=== PATIENT | female | born 1975 | race Caucasian/White ===

== ENCOUNTER 2017-10-19 09:28 | Emergency (ER) | payer BC ==
[~2017-10-19 09:28] MED LIST: ENOX80DI8 SQ; ESC10 PO; FERR27TA3 PO; LEVO1TBD11 PO; OFF COUMADIN; PER PO
--- NOTE | 2017-10-19 09:30 | ER Report ---
History and Physical Time Seen By MD: 09:29 HPI/ROS CHIEF COMPLAINT: Steer stepped on foot HISTORY OF PRESENT ILLNESS: Patient states that her right foot was stepped on by his Steer. She is having pain to the distal aspect of the 2nd through 4th metatarsal area. Patient was wearing a canthus style sneaker when the injury occurred. Patient reports painful weightbearing. She denies any other injuries. Allergies: Coded Allergies: No Known Drug Allergies (Verified , 09/09/10) Home Meds Active Scripts Hydrocodone Bit/Acetaminophen (HYDROCODON-ACETAMINOPHEN 5-325) 1 Each Tablet, 1- 2 EACH PO Q4-6H for PAIN, #20 TAB 0 Refills Prov:GLENNA RAMÍREZ MD 10/19/17 Reported Medications [Metoprolol] No Conflict Check 10/19/17 Warfarin Sodium (COUMADIN) 7.5 Mg Tablet, 7.5 MG PO QDAY 10/19/17 Escitalopram Oxalate (Lexapro) 10 Mg Tab, 10 MG PO QDAY, 0 Refills 01/21/09 Discontinued Reported Medications Ferrous Sulfate (Iron) 1 Tab Tablet, 1 TAB PO QAM, 0 Refills 01/21/09 Enoxaparin Sodium (Lovenox) 80 Mg/0.8 Ml Disp.syrin, 80 MG SQ QAM, 0 Refills 01/21/09 [Off Coumadin] No Conflict Check, 0 Refills 01/21/09 Past Medical/Surgical History History of aortic stenosis with valve repair currently on Coumadin. Patient also history of hysterectomy status post menorrhagia. Constitutional Vital Sign - Last 24 Hours 10/19/17 10/19/17 09:32 10:31 Temp 98.1 Pulse 105 86 Resp 17 17 B/P (MAP) 146/100 138/96 (110) Pulse Ox 97 96 O2 Delivery Room Air Room Air Physical Exam Gen: Patient is awake alert nontoxic appearing no acute respiratory distress Examination of the right lower extremity reveals ecchymosis and bruising to the distal aspect of the 2nd 3rd and 4th metatarsals. Her is no obvious deformity. Skin is intact. There is no pathology to the proximal foot ankle or distal tib- fib area. Medical Decision Making EKG/Imaging Imaging FACILITY: [facility] PATIENT NAME: Bibi Arndt : 1975 MR: [id number] V: [id number] EXAM DATE: ORDERING PHYSICIAN: GLENNA RAMÍREZ [place]CHNOLOG[place] [facility] [place] : 1975 Visit/Account:[id number] Date of Sevice: 10/19/2017 Exam type: FOOT 3 VIEW RIGHT History: Bruising fourth and fifth metatarsals, steer stepped on foot Comparison: None. Findings: There is no evidence of acute fracture or dislocation involving the right fourth and fifth metatarsals. There is a fracture through the distal aspect of the proximal phalanx of the right fifth toe which appears to be angled dorsally No radiopaque soft tissue foreign bodies are seen IMPRESSION: 1. There Is a fracture to the distal aspect the proximal tonsil right fifth toe which appears to be angled dorsally. Report Dictated By: Yocasta Lim MD at 10/19/2017 10:00 AM Report E-Signed By: Yocasta Lim MD at 10/19/2017 10:06 AM WSN:CONCHA ED Course/Re-evaluation ED Course 10/19/2017 9:34:25 am plan at this time will be x-ray of the right foot. Patient was offered pain medication but she refused at this time. Patient is on Coumadin however I do believe the injury does not appear to be terribly significant to require us to type and screen or check INR at this time. Decision to Disposition Date: Oct 19, 2017 Decision to Disposition Time: 10:18 Depart Departure Latest Vital Signs Vital Signs Date Time Temp Pulse Resp B/P (MAP) Pulse Ox O2 Delivery O2 Flow Rate FiO2 10/19/17 10:31 86 17 138/96 (110) 96 Room Air 10/19/17 09:32 98.1 Impression: Primary Impression: Toe fracture, right Condition: Improved Disposition: HOME OR SELF-CARE Referrals: RAMILA IBRAHIM (PCP) GLENNY RESENDIZ MD 5 Days for evaluation of toe fracture New Scripts Hydrocodone Bit/Acetaminophen (HYDROCODON-ACETAMINOPHEN 5-325) 1 Each Tablet 1-2 EACH PO Q4-6H for PAIN, #20 TAB 0 Refills Prov: GLENNA RAMÍREZ MD 10/19/17 Departure Forms: ER Transition Record, Medications Reconciliation, Patient Portal Information Patient Instructions: Toe Fracture (ED) Additional Instructions: Call to schedule a follow-up appointment in the next 5-7 days with orthopedics for reevaluation of your toe fracture. Problem Qualifiers Primary Impression: Toe fracture, right Encounter type: initial encounter Toe: lesser toe Fracture type: closed Phalanx: unspecified phalanx Fracture alignment: displaced Qualified Codes: S92.501A - Displaced unspecified fracture of right lesser toe(s), initial encounter for closed fracture GLENNA RAMÍREZ MD Oct 19, 2017 09:30
[2017-10-19] MEDS ORDERED: WARF7.5T26 PO (09:50)
[2017-10-19] MEDS ORDERED: METOPROLOL (09:51)
--- NOTE | 2017-10-19 10:10 | RADIOLOGY IMAGING REPORT ---
FACILITY: [facility] PATIENT NAME: Bibi Arndt : 1975 MR: [id number] V: [id number] EXAM DATE: ORDERING PHYSICIAN: GLENNA RAMÍREZ TECHNOLOGIST: [facility] Patient: Bibi Arndt : 1975 Visit/Account:[id number] Date of Sevice: 10/19/2017 Exam type: FOOT 3 VIEW RIGHT History: Bruising fourth and fifth metatarsals, steer stepped on foot Comparison: None. Findings: There is no evidence of acute fracture or dislocation involving the right fourth and fifth metatarsal s. There is a fracture through the distal aspect of the proximal phalanx of the right fifth toe whic h appears to be angled dorsally No radiopaque soft tissue foreign bodies are seen IMPRESSION: 1. There Is a fracture to the distal aspect the proximal tonsil right fifth toe which appears to be angled dorsally. Report Dictated By: Yocasta Lim MD at 10/19/2017 10:00 AM Report E-Signed By: Yocasta Lim MD at 10/19/2017 10:06 AM WSN:[email or web address]
[2017-10-19] MEDS ORDERED: LOR5/325 PO (10:21)
[2017-10-19 10:31] VITALS: BP 138/96
== END 2017-10-19 10:31 | disposition home or self-care (01) ==
LOC: ER 09:33
DX: S92.511A Displaced fracture of proximal phalanx of right lesser toe(s), initial encounter for closed fracture (principal); W55.29XA Other contact with cow, initial encounter
CPT/HCPCS: 99283